=== PATIENT | female | born 1985 | race Caucasian/White ===

== ENCOUNTER 2020-06-13 13:18 | Outpatient (REF) | payer BC, SELFPAY | END 2020-06-13 13:19 | disposition home or self-care (01) | LOC: HO.LAB 13:18 | PROVIDERS: Visit Provider Nurse Practitioner Family | DX: Z20.828 Contact with and (suspected) exposure to other viral communicable diseases (principal); R09.81 Nasal congestion | CPT/HCPCS: U0003 ==